=== PATIENT | female | born 1975 ===

== ENCOUNTER 2021-05-28 16:12 | Emergency (ER) | payer SELFPAY ==
[~2021-05-28] VITALS: Ht 177.8 cm; Wt 75.0 kg
[2021-05-28 16:15] VITALS: BP 140/90
[2021-05-28] MEDS ORDERED: BUDE180A INH (17:14)
[2021-05-28] MEDS ORDERED: ALBU6.7H9 INH (17:14)
[2021-05-28] MEDS ORDERED: LEVO500T90 PO (17:14)
[2021-05-28] MEDS ORDERED: PRED10TA23 PO (17:14)
--- NOTE | 2021-05-28 17:20 | NUR ---
Pt given and understands d/c instructions. Ambulatory with a steady gait.
== END 2021-05-28 17:20 | disposition home or self-care (01) ==
LOC: ER 16:14
DX: U07.1 COVID-19 (principal); J12.82 Pneumonia due to coronavirus disease 2019; F17.210 Nicotine dependence, cigarettes, uncomplicated; Z88.0 Allergy status to penicillin; Z79.899 Other long term (current) drug therapy
CPT/HCPCS: 71045; 87635; 99284; C9803